=== PATIENT | female | born 1950 | race Hispanic/Latino ===

== ENCOUNTER 2022-08-16 18:15 | Emergency (ER) | payer MEDICARE ==
[~2022-08-16] VITALS: Ht 162.6 cm; Wt 85.8 kg
[2022-08-16] MEDS ORDERED: ASPIRIN 325 MG TAB PO ONE (18:30)
[2022-08-16] MEDS ORDERED: ONDANSETRON HCL INJ 2MG/ML 2ML 2 MG/ML VIAL IV STA (18:53)
[2022-08-16] MEDS ORDERED: ASPIRIN 325 MG TAB ONE (18:56)
[2022-08-16] MEDS ORDERED: ONDANSETRON HCL INJ 2MG/ML 2ML 2 MG/ML VIAL ONE (19:07)
[2022-08-16] MEDS ORDERED: NEURONTIN400 MG PO (19:55)
[2022-08-16] MEDS ORDERED: ROPINIROLE HCL1 MG PO (19:55)
[2022-08-16] MEDS ORDERED: METFORMIN HCL500 M2 PO (19:55)
[2022-08-16] MEDS ORDERED: ATORVASTATIN CA20 MG PO (19:55)
[2022-08-16] MEDS ORDERED: LEVOTHYROXINE50 MCG PO (19:55)
[2022-08-16] MEDS ORDERED: AMLODIPINE BESYL5 MG PO (19:55)
[2022-08-16] MEDS ORDERED: LOSARTAN POTASS25 MG PO (19:55)
[2022-08-16 20:31] VITALS: O2SAT 97
== END 2022-08-16 21:22 | disposition home or self-care (01) ==
LOC: FSED 18:32
DX: R07.89 Other chest pain (principal); K21.9 Gastro-esophageal reflux disease without esophagitis; I10 Essential (primary) hypertension; E78.5 Hyperlipidemia, unspecified; Z20.822 Contact with and (suspected) exposure to COVID-19
CPT/HCPCS: 71046; 93005; 99284; C9113; J2405; U0002